=== PATIENT | male | born 1955 | race Caucasian/White ===

== ENCOUNTER → 2020-09-13 | Outpatient (CLI) | payer MEDICARE, SELFPAY ==
[2020-09-13 16:51] LABS: Pathologist Comment May follow
[2020-09-13 17:15] LABS: Synovial Fld Mononuclear WBC % 77.4 %; Synovial Fld Polynuclear WBC # 0.028 10^3/uL; Synovial Fld Polynuclear WBC % 22.6 %
[2020-09-13 17:25] LABS: AUTO B FLUID DILUENT BKGD CT WBC <0.1 RBC <0.01 (W<.1,R<.01); RBC /Synovial Fluid 0.005 10^6/uL (0); Source- Body Fluid SYNOVIAL
[2020-09-13 17:26] LABS: Appearance /Synovial Fluid Cloudy (CLEAR); Color / Synovial Fluid Yellow (Pale Yellow); Source / Synovial Fluid L ELBOW; Viscosity / Synovial Fluid Sl. Viscous (HIGH)
[2020-09-13 19:46] LABS: Body Fluid QC Type(s) BF1Q,BF2Q; Lymph 94 %; Neutrophil 6 % (0-25)
[2020-09-16 13:24] LABS: Pathologist Review Reviewed
== END | disposition home or self-care (01) ==
PROVIDERS: Referring Provider Physician Assistant Surgical; Visit Provider Physician Assistant Surgical
DX: M70.22 Olecranon bursitis, left elbow (principal)
CPT/HCPCS: 87070; 87075; 87205; 89050; 89051; 89060

== ENCOUNTER 2023-11-29 08:59 | Day surgery (SDC) | payer MEDICARE, OTHER, SELFPAY ==
--- NOTE | 2023-11-25 11:01 | EKG12_ITS ---
Test Reason : PRE OP Blood Pressure : / mmHG Vent. Rate : 081 BPM Atrial Rate : 081 BPM P-R Int : 170 ms QRS Dur : 094 ms QT Int : 378 ms P-R-T Axes : -11 -01 -12 degrees QTc Int : 439 ms Normal sinus rhythm Normal ECG Confirmed by GE BALL, KINGSTON ([id number]), supervising editor trailer LEELEE MCCURDY ([id number]) on 11/26/2023 10:27:29 AM Referred By: Alexandria Blackman Confirmed By:RAYA CAROLINA MD
[2023-11-25 11:46] LABS: Hematocrit 46.8 % (40-54); Mean Corp Hgb Conc 34.2 g/dL (32-36); Mean Corpuscular Hgb 30.6 pg (27.0-32.0); Mean Corpuscular Volume 89.5 fL (80-94); Mean Platelet Vol. 9.1 fl (6.2-12.0); Platelet Count 262 K/mm3 (150-450); RBC Distribution Width SD 42.7 fl (35.1-43.9); Red Blood Count 5.23 M/mm3 (4.6-6.2); White Blood Count 6.2 K/mm3 (4.4-11.0)
[2023-11-25 11:54] LABS: Anion Gap 4 (5-15); BUN 19 mg/dL (7-18); BUN/Creat Ratio 20.5 RATIO (10-20); Calcium,Total 9.3 mg/dL (8.5-10.1); Chloride 109 mmol/L (98-107); Creatinine, Serum 0.92 mg/dL (0.70-1.30); EST Glomerular Filtration Rate 86 mL/min (>60); Est Glom Filt Rate - Afr Amer 104 mL/min (>60); Glucose 102 mg/dL (74-106); Potassium 4.2 mmol/L (3.5-5.1); Sodium Level 139 mmol/L (136-145)
[2023-11-29] VITALS (10 sets, daily range): BP systolic 113–163; BP diastolic 75–96; PULSE 67–77; RESP 14–16; TEMP 36.2–37.1; O2SAT 91–95; BMI 31.5
--- NOTE | 2023-11-29 09:25 | PCM.HP.BLA ---
History and Physical Date of Admission: 11/29/23 Date of Service: 11/12/23 MR#: [id number] Acct: [id number] Name: OFELIA SWEET Rep #: [id number] : 1955 Provider: Dr. Alexandria Blackman MD Age/Sex: 68/M Location: [facility] Status: Signed Intake Vital Signs 11/12/2407:57 Height 5 ft 10 in Weight: 219 lb 8 oz BMI 31.4 BP 148/86 H Blood Pressure Location Rt brachial Position Sitting Respiration 18 Pulse 78 Pulse Source Monitor Temp 97.2 F L Temp Source Temporal Pulse Oximetry (%) 96 Oxygen Delivery Method room air Intake Visit Reasons: SELF REFERRED UMBILICAL HERNIA Chief Complaint: self referred umbilical hernia Is patient in pain?: No Allergies No Known Allergies Allergy (Unverified 11/12/23 08:58) Medications ?Medication ?Instructions ?Recorded ?Confirmed ?Type meloxicam 15 mg tablet 15 mg PO QDAY 11/12/23 11/12/23 History Have you fallen in the past year?: No PFSH Medical History (Updated 11/12/23 @ 08:56 by Flaquita Green LPN) Loose left total knee arthroplasty Social History (Updated 11/12/23 @ 08:57 by Flaquita Green LPN) Smoking Status: Never smoker alcohol intake: never substance use type: does not use HPI HPI HPI: 68-year-old male presents self-referred for umbilical hernia. Patient states he has had this for years he used to feel reduced and would stand for a little bit currently just pops right back out. Patient never had surgery at the site. Patient does admit to having diastases. Patient denies any nausea or vomiting and has bowel functions daily. Patient states currently he is having pain at the umbilicus and is interested in having it repaired. ROS General General: No weight change, appetite, fatigue, colon cancer, breast cancer or weakness HEENT HEENT: No difficulty swallowing, eye injury, eye surgery, swollen glands or hoarseness Endo Endocrine: No thyroid disease, diabetes mellitus, thyroid cancer, Hair loss, heat intolerance or cold intolerance Skin Skin: No rash or changing moles Musc Musculoskeletal: Yes arthritis; No back problems, rheumatoid arthritis, gout or joint pain Cardio Cardiovascular: No murmur, pacemaker, heart disease, atrial fibrillation, high blood pressure, heart attack, heart stent, palpitations, shortness of breat with exertion or chest pain Psych Psychiatric: No depression, anxiety or hearing voices Resp Respiratory: No shortness of breath, No sleep apnea, No cough, No COPD, No asthma, No emphysema and No wheezing Gastro Gastrointestinal: No abdominal pain, No nausea or vomiting, No diarrhea, No constipation, No blood in stool, No acid reflux, No hemorrhoids, No ulcers, No gallbladder problem and No black,tarry stools [place]reket Hematologic: No blood thinners, No blood disorders, No bleeding, No anemia and No blood clots Neuro Neurologic: No numbness, No tingling and No weakness Exam Const General: cooperative, healthy appearing, comfortable and no acute distress HENMT Head: normocephalic and atraumatic Neck Neck: supple Resp Effort & Inspection: normal respiratory effort Cardio Rate: regular rate GI Inspection: non-distended Palpation: soft, hernia (Umbilical hernia about 1 cm) and nontender Other: Positive diastases recti Skin General: no rashes or lesions noted Neuro General: CN's II-XI intact bilaterally Extrem General: normal to inspection Psych Mental Status: mental status grossly normal Attitude: cooperative Assessment and Plan Assessment and Plan (1) Umbilical hernia: Status: Acute Plan Plan to do an umbilical hernia repair with mesh. Reviewed the procedure with the patient including the risks, including but not limited to infection, bleeding, injury to the small bowel, and recurrence. All questions were answered. Patient was agreeable with plan. Alexandria Blackman M.D. Pager: [phone] [facility] [address] [place] [address], [address] [place] [address] Office: [phone] Coding Level of Care Code Off vis,new,level 3 Diagnoses Umbilical hernia K42.9 Clinical Quality Measures Falls Risk Screening/Assistive Devices Have you fallen in the past year?: No 11/12/23 9885 <Electronically signed by Alexandria Blackman MD> Date Alexandria Blackman MD
--- NOTE | 2023-11-29 09:38 | PRE.ANES_ITS ---
ASA Classification* ASA Classification ASA Classification: 2 Assessment & Plan Anesthesia* Anesthesia Assessment Anesthesia Assessment: Discussed sedation and/or anesthesia options, risks, benefits, and alternatives with patient/parents/legal guardian/POA. Questions invited. The patient/parents/legal guardian/POA seems to understand and agrees to proceed with anesthesia plan. Reviewed the physical assessment, medical history, allergy history and patient home medications list prior to surgery/procedure/anesthetic and documented any changes. Performed airway and anesthesia risk assessments. Anesthesia Type Anesthesia Type: General (*see written pre anesthesia record for full assessment) Anesthesia Focused Assessment* Airway Assessment Mouth opens: >3 cm Mallampati Score: II Focused Labs Anesthesia Preop lab: CBC WBC 6.2 K/mm3 (4.4-11.0) 11/25/23 11:12 RBC 5.23 M/mm3 (4.6-6.2) 11/25/23 11:12 Hgb 16.0 g/dL (13.0-16.5) 11/25/23 11:12 Hct 46.8 % (40-54) 11/25/23 11:12 Plt Count 262 K/mm3 (150-450) 11/25/23 11:12 CHEMISTRY Potassium 4.2 mmol/L (3.5-5.1) 11/25/23 11:12 Sodium 139 mmol/L (136-145) 11/25/23 11:12 BUN 19 mg/dL (7-18) H 11/25/23 11:12 Creatinine 0.92 mg/dL (0.70-1.30) 11/25/23 11:12 Glucose 102 mg/dL (74-106) 11/25/23 11:12 COAG Pre-Assessment Diagnosis/Proposed Procedure Planned Operative Procedure(s): OPEN UMBILICAL HERNIA REPAIR WITH MESH Anesthesia History Anesthesia History - supervisor type photography: Anesthesia History - supervisor type photography Hx Hospitalization No 11/18/23 15:13 Any Problems With Anesthesia No 11/18/23 15:13 Cholinesterase deficiency No 11/18/23 15:13 You/Your Family Experience No 11/18/23 15:13 fever (hyperthermia) with Relationship Recent Exposure to Contagious Disease Does patient have nerve No 11/18/23 15:13 stimulator Patient instructed to have device shut off --Does patient have Pacemaker or ICD? When Was Last Pacemaker Check QUESTION #4 FULL TEXT: You/Your Family Experience fever (hyperthermia) with Anesthesia Last Oral Intake Last Oral intake: Last Oral Intake NPO since Meds taken in AM with sips of water? Meds patient instructed to take am of surgery PONV PONV - supervisor type photography: PONV - supervisor type photography Female No 11/18/23 15:13 HX of Motion Sickness No 11/18/23 15:13 HX of N/V After Surgery No 11/18/23 15:13 Non-Smoker Yes 11/18/23 15:13 Duration of Surgery greater Yes 11/18/23 15:13 than 60 minutes Number of Risk Factors 2 11/18/23 15:13 PONV Score Moderate Risk 11/18/23 15:13 Height & Weight Height & Weight: Anesthesia: Height & Weight Height 5 ft 10 in 11/26/23 07:58 Weight: 99.337 kg 11/26/23 07:58 Respiratory Assessment Respiratory Assessment - supervisor type photography: Respiratory Tract Infection Hx - supervisor type photography Hx Respiratory Tract Infection No 11/18/23 15:13 STOP Sleep Apnea STOP Sleep Apnea - supervisor type photography: STOP Sleep Apnea - supervisor type photography Hx Hypertension No 11/18/23 15:13 Hx Sleep Apnea No 11/18/23 15:13 CPAP BIPAP Do you snore loudly (louder Yes 11/18/23 15:13 than talking or can be heard Do you often feel tired/ No 11/18/23 15:13 fatigued/ sleepy during daytime? Has anyone observed you stop No 11/18/23 15:13 breathing during sleep? STOP Results Negative 11/18/23 15:13 QUESTION #5 FULL TEXT : Do you snore loudly (louder than talking or can be heard through closed doors)? 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 Specify any problems Hx of Preganancy in last 3 N/A 11/18/23 15:13 Months Nurse Filling Out Transfusion DSCHRIBER 11/18/23 15:13 & Questions: Date: 11/18/23 11/18/23 15:13 Time: 15:14 11/18/23 15:13 Patient unable to answer at this time (ie. confused, unrespo /Reproduction History /Reproductive History - supervisor type photography: /Reproductive Hx- supervisor type photography Hx Now No 11/18/23 15:13 Gestational Age (in weeks): EDC: Hx Hx Para Hx Section SAB No 11/18/23 15:13 Active Medications Active Medications: Current Medications Generic Name Dose Route Start Last Admin Trade Name Freq PRN Reason Stop Dose Admin Cefazolin Sodium 2 gm/ Sodium 110 mls @ 150 mls/hr 11/29/23 11:30 Chloride IV 11/29/23 12:13 PREOP ONE Lactated Ringer's 1,000 mls @ 15 mls/hr 11/29/23 09:30 IV .Q48H AIMEE PFSH Medical History Wears contact lenses Wears glasses Wears dentures Alcohol use Burn History of steroid therapy Arthritis Back pain Shortness of breath on exertion Former smoker History of edema History of hiatal hernia History of pain when walking Home Medications ?Medication ?Instructions ?Recorded ?Last Taken ?Type meloxicam 15 mg tablet 15 mg PO QDAY 11/12/23 Unknown History ibuprofen 400 mg tablet (IBU) 400 mg PO Q8H PRN pain 11/18/23 Unknown History Allergy/AdvReac Type Severity Reaction Status Date / Time No Known Allergies Allergy Verified 11/18/23 15:08 Surgical History History of esophagogastroduodenoscopy (EGD) Social History Smoking Status: Former smoker alcohol intake: never substance use type: does not use Review of Systems (Anesthesia) ROS Narrative System reviewed and no additional complaints, except as documented.
[2023-11-29] MEDS: Lactated Ringers 1,000 ML 15 ML IV (09:45)
[2023-11-29] MEDS: Cefazolin 2 GM in 0.9% Normal Saline (100mL Bag) 100 ML IV (09:56)
[2023-11-29] MEDS: Bupivacaine Mpf 0.5% 30 ML VIAL (10:39)
--- NOTE | 2023-11-29 10:44 | PCM.OPRPT ---
Report of Operation Date of Procedure: 11/29/23 Pre-Operative Diagnosis: Umbilical hernia Post-Operative Diagnosis: Incarcerated umbilical hernia Surgery/Procedure Performed:: Open repair of incarcerated medical hernia with mesh Surgeon: Alexandria Blackman Type of Anesthesia: Local MAC Anesthesiologist: Donell Vargas Special Medications: Ancef 2 g IV x 1 Specimen's removed: None Estimated Blood Loss (mL): < 10 cc Description of Procedure: Patient was brought into the room placed supine on the operating table. Correct patient, procedure, site, positioning, special, was verified prior to procedure. General anesthesia was induced. The abdomen was prepped draped in usual sterile fashion. A curvilinear incision was made below the umbilicus with a 15 blade scalpel. This was deepened with electrocautery. A hemostat was used to go around the stalk of the umbilicus and Metzenbaum scissors was used to carefully divide the hernia sac from the skin of the umbilicus. The fascia around the hernia defect was cleared and the hernia defect measured 2 cm x [address] hernia patch 6.4 cm was selected. This was secured laterally at its tails with 0 Prolene horizontal mattress suture. The hernia defect was closed with 2 [id number] 0 Prolene. The wound was irrigated with saline. Hemostasis was assured. The skin of the umbilicus was secured to the fascia using 3-0 Vicryl suture interrupted. The incision was closed with 3-0 Vicryl subdermal interrupted sutures and the skin was closed with interrupted 4-0 Monocryl sutures. Steri-Strips and Tegaderm and OpSite were placed over the incision once sterile cotton balls were placed in the umbilicus. Patient was extubated. Patient tolerated procedure well and was taken to the postanesthesia care unit in stable condition. Grafts/Implants Used: Ventralex ST hernia patch 6.4 cm LOT [id number] [id number] Complications none
--- NOTE | 2023-11-29 10:47 | DCINST_ITS ---
Discharge Instructions Diet Discharge Diet: Light diet - advance as tolerated Activity May shower in (days): 5 (Keep umbilical dressing clean dry and intact for 5 days. Okay to tape off with a Ziploc bag to shower. Or lower shower and upper sponge bath.) Lifting Restrictions: no lifting >20 lbs x 2 wks, no strenuous exercise for 4 wks Additional Activity Instructions:: - Dressing / Incision Call your doctor if your incision/area has: Continuous Slow Oozing, Sudden Increased Bleeding, Increased Pain/ Swelling, Increased Redness, Foul Smelling Discharge and Swelling at the incision site Call your doctor if you observe: Fever of 101 or Higher Remove Dressing in: 5 days (After 5 days okay to remove surgical dressing. Place cotton ball or rolled up gauze in bellybutton and retape daily for 2 more days.) Cleanse incision/area with: Do not get Incision Wet (for 5 days) Additional Dressing/Incision Instructions:: Steri-Strips will fall off in 7 to 10 days, if they do not fall off okay to remove after 10 days. Follow Up Care Please Follow Up With: Alexandria Blackman MD When: Call the office for a follow-up appointment 2 weeks; after 5 PM and on the weekends call [phone] with any concerns. Test Results: Test results from this visit will be discussed in further detail at your follow- up appointment, if applicable. Discharge Plan Admission Attending Provider: Alexandria Blackman Primary Care Provider: Care Physician,No Primary Instructions Print Language: Gibralt[place] Discharge Orders/Prescriptions Prescriptions: New oxycodone-acetaminophen 5-325 mg tablet 1 tab PO Q6H PRN (Reason: pain) 3 Days Qty: 10 0RF Continued meloxicam 15 mg tablet 15 mg PO QDAY ibuprofen [IBU] 400 mg tablet 400 mg PO Q8H PRN (Reason: pain) Other Ambulatory Orders: 12 Lead EKG (Routine) Timeframe: [id number] Location: None Selected Ordered By: Dr. Kasi Silverman Disposition Disposition (needs filled in before D/C Order can be placed): Home, Self Care
--- NOTE | 2023-11-29 10:59 | PCM.POST.ANE ---
Anesthesia: Postop Eval I Current Vital Signs Temperature: 98.8 F Pulse Rate: 68 Blood Pressure: 115/76 Respiratory Rate: 16 Pulse Ox: 92 Oxygen Delivery Method: Nasal Cannula (with 100mm OA d/t edentulous) Oxygen Flow Rate (L/min): 3 Assessment Airway patent: Yes Spontaneous unlabored respirations: Yes Mental status: Asleep nausea: No Vomiting: No Anesthesia Complication: No Fluid Hydration Crystalloid volume administer (ml): 1,400 Total IV fluid infused: 1,400 Progress Note Anesthesia document: Postop Eval 1 completed: Yes
--- NOTE | 2023-11-29 11:57 | PCM.POSTANE2 ---
Anesthesia Postop Eval I Sum Postop Eval Completion status Anesthesia document: Postop Eval 1 completed: Yes Anesthesia Postop Eval I Summary Anesthesia Postop Eval I Summary: Anesthesia Postop Eval I: Assessment Summary Airway patent Yes 11/29/23 11:01 [email or web address] Spontaneous unlabored Yes 11/29/23 11:01 [email or web address] respirations Mental status Asleep 11/29/23 11:01 [email or web address] nausea No 11/29/23 11:01 [email or web address] Vomiting No 11/29/23 11:01 [email or web address] Anesthesia Postop Eval I: Fluid Summary Crystalloid volume administer 1,400 11/29/23 11:01 [email or web address] (ml) Colloids volume administered ( ml) Blood Product volume administered (ml) Total IV fluid infused 1,400 11/29/23 11:01 [email or web address] Anesthesia Postop Eval I: Summary Notes Anesthesia Complication No 11/29/23 11:01 [email or web address] Anesthesia Complication Comment: Post-operative progress note Anesthesia: Postop Eval II Evaluation Mental status: Awake Pain Level: 0 nausea: No Vomiting: No
== END 2023-11-29 12:34 | disposition home or self-care (01) ==
LOC: SDC 09:06 → AC 09:24
PROVIDERS: Anesthesiology; Referring Provider Surgery; Visit Provider Surgery
PROC: (CPT 49594; principal; 2023-11-29 10:30)
DX: K42.0 Umbilical hernia with obstruction, without gangrene (principal); Z87.891 Personal history of nicotine dependence
CPT/HCPCS: 49594; 00830; 36415; 80048; 85027; 93005; C1781; J7120; J2405

== ENCOUNTER → 2024-07-21 | Outpatient (CLI) | payer MEDICARE, OTHER, SELFPAY ==
--- NOTE | 2024-07-21 11:03 | VDLE_ITS ---
Reason For Study Reason For Study: LLE PAin / Swelling Procedure LEFT This is a venous duplex using B-mode, color flow and GSV is normal. spectral Doppler. CFV is compressible, spontaneous, phasic, competent, Exam performed in department. and demonstrates normal augmentation. The study was technically difficult due to patient FV is compressible, spontaneous, phasic, competent swelling and immobility. and demonstrates normal augmentation. Limited views were obtained. POP V is compressible, spontaneous, phasic, competent A preliminary report was called and/or faxed to and demonstrates normal augmentation. [facility]. T/P Trunk is compressible. PTV is compressible. Peroneal Vein appears compressible at mid and distal. Unable to visualize prox vessel due to patient swelling and immobility. VL/Venous Duplex US, Unilateral Interpretation Summary Deep veins of the left lower extremity are patent and compressible segmentally. There is no evidence of left lower extremity deep vein thrombosis. Valvular competence appears intact within the p roximal deep venous system on the left . The left great saphenous vein appears patent and compressible segmentally. The proximal portion of the left peroneal vein was not visualized. Ordering Physician: Leno Mathews Referring Physician: Franko Vivas Performed By: Jakob Cervantes RVT
== END | disposition home or self-care (01) ==
LOC: CVS 10:59
PROVIDERS: PCP Family Medicine; Referring Provider Orthopaedic Surgery; Visit Provider Orthopaedic Surgery
DX: R22.42 Localized swelling, mass and lump, left lower limb (principal)
CPT/HCPCS: 93971

== ENCOUNTER → 2024-07-24 | Outpatient (CLI) | payer MEDICARE, OTHER, SELFPAY ==
[2024-07-24 10:15] LABS: Absolute Neutrophil Count 4.2 X10^3/uL (2.0-7.7); Basophil# 0.03 X10^3/uL; Basophil% 0.5 % (0-1); Eosinophil# 0.13 X10^3/uL; Hematocrit 43.9 % (40-54); Hemoglobin 14.6 g/dL (13.0-16.5); Lymphocyte % 21.9 % (19-41); Mean Corp Hgb Conc 33.3 g/dL (32-36); Mean Corpuscular Volume 90.1 fL (80-94); Mean Platelet Vol. 8.3 fl (6.2-12.0); Monocyte# 0.61 X10^3/uL; Monocyte% 9.5 % (0-10); NRBC Flagged by Analyzer 0 % (0-5); Neutrophil % 65.6 % (47-70); Platelet Count 327 K/mm3 (150-450); RBC Distribution Width CV 12.4 % (11.6-14.6); RBC Distribution Width SD 40.6 fl (35.1-43.9); Red Blood Count 4.87 M/mm3 (4.6-6.2); White Blood Count 6.4 K/mm3 (4.4-11.0)
[2024-07-24 10:33] LABS: Anion Gap 10 (5-15); BUN 22 mg/dL (4-19); BUN/Creat Ratio 25.3 RATIO (10-20); Calcium,Total 9.7 mg/dL (7.6-11.0); Carbon Dioxide 24.4 mmol/L (21.0-32.0); Chloride 104 mmol/L (98-108); Creatinine, Serum 0.88 mg/dL (0.70-1.20); EST Glomerular Filtration Rate 93 (>60); Glucose 105 mg/dL (70-99); Potassium 4.8 mmol/L (3.3-5.1); Sodium Level 138 mmol/L (133-145)
[2024-07-24 10:37] LABS: International Normalized Ratio 1.1
== END | disposition home or self-care (01) ==
LOC: LAB 09:57
PROVIDERS: PCP Family Medicine; Referring Provider Physician Assistant Surgical; Visit Provider Physician Assistant Surgical
DX: Z01.818 Encounter for other preprocedural examination (principal); L76.34 Postprocedural seroma of skin and subcutaneous tissue following other procedure
CPT/HCPCS: 36415; 80048; 85025; 85610

== ENCOUNTER 2024-08-03 08:36 | Emergency (ER) | payer MEDICARE, OTHER, SELFPAY ==
[2024-08-03 08:41] VITALS: BP 136/87; PULSE 87; RESP 20; TEMP 36.9; O2SAT 96
--- NOTE | 2024-08-03 08:59 | EDS_ITS ---
HPI History of Present Illness Chief Complaint: Wound Check Informant: patient and EMS Narrative Narrative: 69-year-old male presenting to the emergency room with fever. Patient states that around 2:30 in the morning he woke from sleep with chills. He states he went to sit up I felt like I was going to fall into a manhole. It is difficult for him to describe what he is meaning by this. He states he did not necessarily feel weak or dizzy he just felt like he was a fall over. He went back to bed when he got up at 6 or 630 this morning felt the same way. He states that his did take his temperature and it was 101 degrees and gave him Tylenol. He states currently he feels fine. He notes some pain in his right low back which he attributes to walking with a walker and compensating. He states that he underwent left knee replacement with Dr. Dyer in June that was complicated by a wound dehiscence and had surgery again July 25. Unfortunately the surgery was performed at another institution so I do not have ready access to that information. He denies any cough runny nose sore throat shortness of breath diarrhea urinary symptoms rash. States that the appears unchanged from several days ago. He notes a drain in place. [facility] Medical History Umbilical hernia Wears contact lenses Wears glasses Wears dentures Alcohol use Burn History of steroid therapy Arthritis Back pain Shortness of breath on exertion Former smoker History of edema History of hiatal hernia History of pain when walking Home Medications ?Medication ?Instructions ?Recorded ?Last Taken ?Type amlodipine 2.5 mg tablet 2.5 mg PO DAILY 08/03/24 Unk nown History celecoxib 200 mg capsule 200 mg PO BID 08/03/24 Unkno wn History famotidine 20 mg tablet 20 mg PO DAILY 08/03/24 Unkn own History oxycodone 5 mg tablet 5 - 10 mg PO Q6H PRN PRN tia n 08/03/24 Unknown History sulfamethoxazole 800 1 tab PO BID 08/03/24 Unknow n History mg-trimethoprim 160 mg tablet Allergy/AdvReac Type Severity Reaction Status Date / Time No Known Allergies Allergy Verified 08/03/24 08:41 Surgical History History of esophagogastroduodenoscopy (EGD) Social History Smoking Status: Former smoker alcohol intake: never substance use type: does not use ROS ROS ED Constitutional Constitutional ED: Reports chills and fever(s); Denies weight loss Eyes Eyes: Denies change in vision or diplopia ENT ENT ED: Denies ear pain, rhinorrhea or sore throat Cardiovascular Cardiovascular: Denies chest pain, orthopnea, palpitations or racing heartbeat Respiratory/Chest Respiratory/Chest: Denies cough, dyspnea or orthopnea Gastrointestinal Gastrointestinal: Denies abdominal pain, diarrhea, nausea or vomiting Genitourinary Genitourinary ED: Denies dysuria, hematuria or urinary frequency Musculoskeletal Musculoskeletal: Reports other Details: See history of present illness ; Denies arthralgias or myalgias Integumentary Reports other; Denies abscess or rash Neurologic Neurologic: Denies headache(s) or weakness Psychiatric Psychiatric: Denies anxiety, depression, suicidal ideation or suicidal thoughts Endocrine Endocrinology: Denies polydipsia, polyphagia or polyuria Allergic/Immunologic Allergic/Immunologic ED: Denies mouth swelling, tongue swelling or urticaria EXAM Physical Exam Const Vital Signs: 08/03/24 08:41 08/03/24 09:45 08/03/24 10:00 Temperature 98.5 F 98.9 F 98.6 F Temperature Source Oral Oral Oral Pulse Rate 87 71 84 Respiratory Rate 20 H 17 18 Blood Pressure 136/87 H 133/80 H 137/80 H Blood Pressure Mean 103 97 99 Pulse Ox 96 93 97 Oxygen Delivery Method Room Air Room Air 08/03/24 11:34 Temperature 98.5 F Temperature Source Pulse Rate 78 Respiratory Rate 13 Blood Pressure 140/79 H Blood Pressure Mean 99 Pulse Ox 96 Oxygen Delivery Method Positive well nourished and well developed General Appearance ED: well developed and NAD HEENT Reports normocephalic, head/scalp atraumatic and moist mucous membranes Eyes PERRL and EOMs intact bilaterally Neck full ROM, no lymphadenopathy, supple and no JVD Resp normal respiratory effort and clear to auscultation bilaterally Cardio regular rate, regular rhythm and no murmurs GI normal to inspection, nondistended, normoactive bowel sounds and non-tender Palpation: soft Back/Spine no CVA tenderness and normal ROM Back/Spine Narrative: Mild tenderness to palpation in the right lower lumbar paraspinal musculature. I do not palpate crepitance. Extremity Extremity Narrative: Left knee demonstrates diffuse swelling no particular erythema. Midline anterior surgical incision has stitches in place. There is a GERI drain entering laterally. Serosanguineous fluid is noted. Surgical dressing and compression stockings are noted. General Extremety ED: Yes edema General Extremity: edema Neuro oriented x3 and CN's II-XII intact bilaterally Sensorium / Orientation: alert Motor Exam: strength 5/5 throughout Psych mental status grossly normal Mood & Affect: Negative for depressed or tearful Skin no rashes or lesions noted and no wounds MDM MDM MDM Narrative Medical decision making narrative: Differential diagnosis includes but not limited to viral syndrome knee infection skin infection urinary tract infection pneumonia bacteremia My independent interpretation of the chest x-ray is no acute process. They have a interpretation of the 2 view knee x-ray is soft tissue swelling status post replacement with drain. White count 12.8 neutrophils 83.2 hemoglobin 14.8 platelet count is 238. INR is 1. Lactic acid is 1.4. CRP is 46.3 ESR is 35. Blood culture obtained. Urinalysis with no obvious infection. Urine culture was sent. I spoke with Dr. Dyer. Patient is on Bactrim based on the sensitivities of the culture obtained operatively. Patient currently is without fever and appears well. He states he feels well enough to go home. He is going to follow-up with Dr. Dyer tomorrow at 1000 hours. He will monitor for new symptoms return if needed. History & Record Review Discussion w/independent historian: Patient and Family Lab Data Attestation: I reviewed the patient's lab results. Labs: Laboratory Results - last 24 hr 08/03/24 08/03/24 08/03/24 09:10 09:12 09:45 WBC 12.8 H RBC 4.87 Hgb 14.8 Hct 43.4 MCV 89.1 MCH 30.4 MCHC 34.1 RDW Std Deviation 42.5 RDW Coeff of Aleksander 13.0 Plt Count 238 MPV 8.9 Immature Gran % (Auto) 0.900 Neut % (Auto) 83.2 H Lymph % (Auto) 5.4 L [place] % (Auto) 9.7 Eos % (Auto) 0.5 Baso % (Auto) 0.3 Absolute Neuts (auto) 10.7 H Absolute Lymphs (auto) 0.69 L Nucleated RBC % 0 ESR 35 H PT 13.8 INR 1.0 APTT 25.7 Sodium 134 Potassium 4.6 Chloride 102 Carbon Dioxide 19.1 L Anion Gap 12 BUN 19 Creatinine 1.04 Est GFR (MDRD) Non-Af 78 BUN/Creatinine Ratio 18.7 Glucose 124 H Lactic Acid 1.4 Calcium 9.4 Total Bilirubin 0.36 AST 19 ALT 15 Alkaline Phosphatase 96 C-React Prot Ext Range 46.30 H Total Protein 7.6 Albumin 4.0 Globulin 3.6 Albumin/Globulin Ratio 1.1 Urine Color Urine Clarity Urine pH Ur Specific [place] Urine Protein Urine Glucose (UA) Urine Ketones Urine Occult Blood Urine Nitrite Urine Bilirubin Urine Urobilinogen Ur Leukocyte Esterase Urine RBC Urine WBC Ur Squamous Epith Cells Urine Bacteria Urine Mucus 08/03/24 10:33 WBC RBC Hgb Hct MCV MCH MCHC RDW Std Deviation RDW Coeff of Aleksander Plt Count MPV Immature Gran % (Auto) Neut % (Auto) Lymph % (Auto) [place] % (Auto) Eos % (Auto) Baso % (Auto) Absolute Neuts (auto) Absolute Lymphs (auto) Nucleated RBC % ESR PT INR APTT Sodium Potassium Chloride Carbon Dioxide Anion Gap BUN Creatinine Est GFR (MDRD) Non-Af BUN/Creatinine Ratio Glucose Lactic Acid Calcium Total Bilirubin AST ALT Alkaline Phosphatase C-React Prot Ext Range Total Protein Albumin Globulin Albumin/Globulin Ratio Urine Color Yellow Urine Clarity Clear Urine pH 6.0 Ur Specific [place] 1.020 Urine Protein 15 H Urine Glucose (UA) Normal Urine Ketones Negative Urine Occult Blood 10 H Urine Nitrite Negative Urine Bilirubin Negative Urine Urobilinogen Normal Ur Leukocyte Esterase 25 H Urine RBC 0-5 SEEN Urine WBC 0-5 SEEN Ur Squamous Epith Cells 0 SEEN Urine Bacteria 0 SEEN Urine Mucus 1+ Radiography Diagnostic Testing: Clinical Impression(s) from Imaging Studies Chest X-Ray 08/03/24 09:20 IMPRESSION: No acute cardiopulmonary process. Reading Location: [facility] Knee X-Ray 08/03/24 09:20 IMPRESSION: Status post total knee replacement in anatomic position. Reading Location: [facility] Management Discussion w/another healthcare provider: [employer] (Dr Dyer (orthopedics)) Discharge Plan Triage Chief Complaint: Wound Check ED Provider: Jules Marcus Dx/Rx/DC Orders Clinical Impression: Fever, Weakness Instructions: ED FUO Adult Prescriptions: No Action celecoxib 200 mg capsule 200 mg PO BID amlodipine 2.5 mg tablet 2.5 mg PO DAILY sulfamethoxazole-trimethoprim 800-160 mg tablet 1 tab PO BID famotidine 20 mg tablet 20 mg PO DAILY oxycodone 5 mg tablet 5 - 10 mg PO Q6H PRN PRN (Reason: pain) Primary Care Provider: Franko Vivas Referrals: Franko Vivas MD [Primary Care Provider] - Giuseppe Dyer MD [Med Staff - Active Staff] - 1 Day (@ 1000 hours tomorrow) Activity Restrictions/Additional Instructions: If you develop new symptoms or worsening please return to emergency. As we discussed I do not see an obvious source for your fever today. Sometimes symptoms of the illness take time to develop. Please monitor yourself and return if needed. Print Language: Jordanian Disposition Disposition: Home, Self Care
--- NOTE | 2024-08-03 09:20 | RAD_ITS ---
EXAM: XR Left Knee, 1 or 2 Views CLINICAL INDICATION: POST OPERATIVE FEVER TECHNIQUE: Frontal and/or lateral views of the left knee. COMPARISON: No relevant prior studies available. FINDINGS: BONES/JOINTS: Total knee replacement. Intact hardware. No acute fracture. No dislocation. SOFT TISSUES: Soft tissue emphysema and swelling. RAD/Knee 1 or 2 Views IMPRESSION: Status post total knee replacement in anatomic position. Reading Location: [facility]
--- NOTE | 2024-08-03 09:20 | RAD_ITS ---
EXAM: XR Chest, 1 View CLINICAL INDICATION: FEVER TECHNIQUE: Frontal view of the chest. COMPARISON: No relevant prior studies available. FINDINGS: LUNGS AND PLEURAL SPACES: Unremarkable. No consolidation. No pneumothorax. HEART: Unremarkable. No cardiomegaly. MEDIASTINUM: Unremarkable. Normal mediastinal contour. BONES/JOINTS: Unremarkable. No acute fracture. RAD/Chest 1 View (Portable) IMPRESSION: No acute cardiopulmonary process. Reading Location: [facility]
[2024-08-03 09:26] LABS: Absolute Lymphocyte Count 0.69 X10^3/uL (0.83-4.51); Absolute Neutrophil Count 10.7 X10^3/uL (2.0-7.7); Basophil# 0.04 X10^3/uL; Basophil% 0.3 % (0-1); Eosinophil# 0.07 X10^3/uL; Eosinophils% 0.5 % (0-5); Hematocrit 43.4 % (40-54); Hemoglobin 14.8 g/dL (13.0-16.5); Lymphocyte # 0.69 X10^3/ul (0.83-4.51); Lymphocyte % 5.4 % (19-41); Mean Corp Hgb Conc 34.1 g/dL (32-36); Mean Corpuscular Hgb 30.4 pg (27.0-32.0); Mean Corpuscular Volume 89.1 fL (80-94); Mean Platelet Vol. 8.9 fl (6.2-12.0); Monocyte# 1.24 X10^3/uL; Monocyte% 9.7 % (0-10); NRBC Flagged by Analyzer 0 % (0-5); Neutrophil # 10.69 X10^3/uL (2.7-7.7); Neutrophil % 83.2 % (47-70); Platelet Count 238 K/mm3 (150-450); RBC Distribution Width SD 42.5 fl (35.1-43.9); Red Blood Count 4.87 M/mm3 (4.6-6.2); White Blood Count 12.8 K/mm3 (4.4-11.0)
[2024-08-03 09:45] VITALS: BP 133/80; PULSE 71; RESP 17; TEMP 37.2; O2SAT 93
[2024-08-03 09:52] LABS: Lactic Acid 1.4 mmol/L (0.0-2.0)
[2024-08-03 09:53] LABS: ALB/GLOB Ratio 1.1 RATIO (0.9-2.4); AST(SGOT) 19 U/L (<=37); Alanine Aminotransfer ALT/SGPT 15 U/L (<=46); Alkaline Phosphatase 96 U/L (40-129); Anion Gap 12 (5-15); BUN 19 mg/dL (4-19); BUN/Creat Ratio 18.7 RATIO (10-20); Calcium,Total 9.4 mg/dL (7.6-11.0); Carbon Dioxide 19.1 mmol/L (21.0-32.0); Chloride 102 mmol/L (98-108); Creatinine, Serum 1.04 mg/dL (0.70-1.20); EST Glomerular Filtration Rate 78 (>60); Globulin 3.6 g/dL (2.2-4.2); Glucose 124 mg/dL (70-99); Potassium 4.6 mmol/L (3.3-5.1); Protein, Total 7.6 g/dL (5.9-8.4); Sodium Level 134 mmol/L (133-145); Total Bilirubin 0.36 mg/dL (0.00-1.30)
[2024-08-03 10:00] VITALS: BP 137/80; PULSE 84; RESP 18; TEMP 37; O2SAT 97
[2024-08-03 10:03] LABS: Partial Thromboplast Time 25.7 Seconds (24.1-36.2); Prothrombin Time (Protime)PT. 13.8 SECONDS (11.7-14.9)
[2024-08-03 10:38] LABS: Bacteria 0 SEEN /hpf (None Seen); Squamous Epithelial Cells - UA 0 SEEN /hpf (0-5)
[2024-08-03 10:49] LABS: Erythrocyte Sedimentation Rate 35 mm/hr (0-20)
[2024-08-03 10:54] LABS: Color, Urine Yellow (Yellow); Glucose, Dipstick Normal (Normal); Ketone-Dipstick Negative (Negative); Leukocyte Esterase-Dipstick 25 /ul (Negative); Nitrite-Dipstick Negative (Negative); Occult Blood-Urine 10 /ul (Negative); Protein-Dipstick 15 mg/dl (Negative); Urine Bilirubin Dipstick Negative (Negative); Urine Clarity Clear (Clear); Urine Urobilinogen Normal (Normal)
[2024-08-03 11:34] VITALS: BP 140/79; PULSE 78; RESP 13; TEMP 36.9; O2SAT 96
[2024-08-03 11:35] LABS: Mucous, Urine 1+ /hpf (<or=2+); Red Blood Cells-Urine 0-5 SEEN /hpf (0-5); White Blood Cells 0-5 SEEN /hpf (0-5)
== END 2024-08-03 11:42 | disposition home or self-care (01) ==
PROVIDERS: Emergency Provider Emergency Medicine; PCP Family Medicine; Visit Provider Emergency Medicine
DX: R50.9 Fever, unspecified (principal); Z87.891 Personal history of nicotine dependence; R53.1 Weakness; Z96.652 Presence of left artificial knee joint; Z98.890 Other specified postprocedural states; Z79.899 Other long term (current) drug therapy
CPT/HCPCS: 36415; 71045; 73560; 80053; 81001; 83605; 85025; 85610; 85652; 85730; 86140; 87040; 87086; 87631; 99285; A4216

== ENCOUNTER → 2024-10-30 | Outpatient (CLI) | payer MEDICARE, OTHER, SELFPAY | END | disposition home or self-care (01) | LOC: CVS 15:49 | PROVIDERS: PCP Family Medicine; Referring Provider Physician Assistant Surgical; Visit Provider Physician Assistant Surgical | DX: R22.41 Localized swelling, mass and lump, right lower limb (principal) | CPT/HCPCS: 93971 ==